=== PATIENT | female | born 1995 | race Caucasian/White ===

== ENCOUNTER 2017-06-22 17:11 | Emergency (ER) | payer SELFPAY ==
[2017-06-22] MEDS ORDERED: Ketorolac INJ* 30 MG/ML 1 ML VIAL IV PUSH ONE (17:52)
[2017-06-22 18:58] LABS: Add Diff/Slide Review? Slide Review Added; Comments Flag Yes; Hematocrit 33 % (35-47); Hemoglobin 10.6 g/dl (12.0-16.0); Mean Corpuscular HGB Conc 33 g/dl (31-36); Mean Corpuscular Hemoglobin 27 pg (27-31); Mean Corpuscular Volume 82 fL (80-97); Mean Platelet Volume 8 um3 (7.4-10.4); Red Cell Distribution Width 14 % (10.5-15)
[2017-06-22 19:05] LABS: Manual Entry Verification ROB0080; Mono Internal Control QC Line Present
[2017-06-22 19:12] LABS: ALT 9 U/L (7-52); AST 16 U/L (13-39); Albumin 4.3 g/dL (3.2-5.2); Alkaline Phosphatase 55 U/L (34-104); Anion Gap 6 mmol/L (2-11); Blood Urea Nitrogen 18 mg/dL (6-24); CO2 Carbon Dioxide 26 mmol/L (22-32); Calcium 9.2 mg/dL (8.6-10.3); Chloride 102 mmol/L (101-111); EGFR African American 165.6 (>60); EGFR Non-African American 128.8 (>60); Globulin 3.2 g/dL (2-4); Glucose 107 mg/dL (70-100); Potassium 3.9 mmol/L (3.5-5.0); Sodium 134 mmol/L (133-145); Total Protein 7.5 g/dL (6.4-8.9)
[2017-06-22] MEDS: NS 0.9% 1000 ML* 2,000 ML IV ONE (19:23)
[2017-06-22] MEDS ORDERED: NS 0.9% 1000 ML* 1,000 ML IV ONE (20:04)
[2017-06-22] MEDS ORDERED: Dexamethasone TAB* 4 MG PO ONE (20:47)
--- NOTE | 2017-06-22 20:49 | ED ---
HPI Febrile Illness - HPI Summary HPI Summary: 21F presents with fever today. She admits to sore throat, headache, dry cough, and generalized body aches. She denies any neck stiffness. She denies any photophobia. She does not have a history of strep or mono. She has not take anything for her fever since this morning. She has normal appetite. no abdominal pain, n/v/d. no tick exposure. rest of school is sick with similar symptoms. - History of Current Complaint Chief Complaint: EDGeneral Time Seen by Provider: 06/22/17 17:51 Pain Intensity: 5 - Allergy/Home Medications Allergies/Adverse Reactions: Allergies Allergy/AdvReac Type Severity Reaction Status Date / Time No Known Allergies Allergy Verified 06/22/17 21:06 PMH/Surg Hx/FS Hx/Imm Hx Endocrine/Hematology History: Denies: Hx Anticoagulant Therapy Cardiovascular History: Denies: Hx Hypertension Infectious Disease History: No Infectious Disease History: Denies: Traveled Outside the [place] in Last 30 Days - Family History Known Family History: Negative: Diabetes - Social History Alcohol Use: None Substance Use Type: Reports: None Smoking Status (MU): Never Smoked Tobacco Review of Systems Positive: Fever Positive: Sore Throat, Nasal Discharge Negative: Chest Pain Positive: Cough. Negative: Shortness Of Breath Negative: Abdominal Pain, Vomiting, Diarrhea, Nausea All Other Systems Reviewed And Are Negative: Yes Physical Exam Triage Information Reviewed: Yes Vital Signs On Initial Exam: Initial Vitals Temp Pulse Resp BP Pulse Ox 101.8 F 92 20 122/63 100 06/22/17 17:14 06/22/17 17:14 06/22/17 17:14 06/22/17 17:14 06/22/17 17:14 Vital Signs Reviewed: Yes Appearance: Positive: Ill-Appearing - nontoxic Skin: Positive: Warm, Dry Head/Face: Positive: Normal Head/Face Inspection Eyes: Positive: Normal, EOMI, FACUNDO, Conjunctiva Clear ENT: Positive: Normal ENT inspection, Pharyngeal erythema, Tonsillar swelling, Other - uvula midline, soft palate symmetric. Negative: Tonsillar exudate, Trismus, Muffled/hoarse voice Neck: Positive: Supple, Nontender, No Lymphadenopathy Respiratory/Lung Sounds: Positive: Clear to Auscultation, Breath Sounds Present Cardiovascular: Positive: Normal, RRR Abdomen Description: Positive: Nontender, Soft Bowel Sounds: Positive: Present Musculoskeletal: Positive: Normal Neurological: Positive: Normal Psychiatric: Positive: Normal - Koffi Coma Scale Coma Scale Total: 15 Diagnostics - Vital Signs Vital Signs Temp Pulse Resp BP Pulse Ox 06/22/17 17:14 101.8 F 92 20 122/63 100 - Laboratory Lab Results: Lab Results 06/22/17 06/22/17 06/22/17 Range/Units 18:30 18:30 19:16 WBC 17.0 H (3.5-10.8) 10^3/ul RBC 4.00 (4.0-5.4) 10^6/ul Hgb 10.6 L (12.0-16.0) g/dl Hct 33 L (35-47) % MCV 82 (80-97) fL MCH 27 (27-31) pg MCHC 33 (31-36) g/dl RDW 14 (10.5-15) % Plt Count 311 (150-450) 10^3/ul MPV 8 (7.4-10.4) um3 Neut % (Auto) 81.9 (38-83) % Lymph % (Auto) 5.9 L (25-47) % [place] % (Auto) 11.9 H (1-9) % Eos % (Auto) 0.2 (0-6) % Baso % (Auto) 0.1 (0-2) % Absolute Neuts (auto) 13.9 H (1.5-7.7) 10^3/ul Absolute Lymphs (auto) 1.0 (1.0-4.8) 10^3/ul Absolute Monos (auto) 2.0 H (0-0.8) 10^3/ul Absolute Eos (auto) 0 (0-0.6) 10^3/ul Absolute Basos (auto) 0 (0-0.2) 10^3/ul Absolute Nucleated RBC 0 10^3/ul Nucleated RBC % 0 Sodium 134 (133-145) mmol/L Potassium 3.9 (3.5-5.0) mmol/L Chloride 102 (101-111) mmol/L Carbon Dioxide 26 (22-32) mmol/L Anion Gap 6 (2-11) mmol/L BUN 18 (6-24) mg/dL Creatinine 0.60 (0.51-0.95) mg/dL Est GFR ( Amer) 165.6 (>60) Est GFR (Non-Af Amer) 128.8 (>60) BUN/Creatinine Ratio 30.0 H (8-20) Glucose 107 H (70-100) mg/dL Calcium 9.2 (8.6-10.3) mg/dL Total Bilirubin 0.30 (0.2-1.0) mg/dL AST 16 (13-39) U/L ALT 9 (7-52) U/L Alkaline Phosphatase 55 (34-104) U/L Total Protein 7.5 (6.4-8.9) g/dL Albumin 4.3 (3.2-5.2) g/dL Globulin 3.2 (2-4) g/dL Albumin/Globulin Ratio 1.3 (1-3) Beta HCG, Quant < 0.60 mIU/mL Monoscreen Negative (Negative) Group A Strep Rapid Negative (Negative) Result Diagrams: 06/22/17 18:30 06/22/17 18:30 Lab Statement: Any lab studies that have been ordered have been reviewed, and results considered in the medical decision making process. Course/Dx - Course Course Of Treatment: 21F presents with fever today. She admits to sore throat, headache, dry cough, and generalized body aches. She denies any neck stiffness. She denies any photophobia. She does not have a history of strep or mono. She has not take anything for her fever since this morning. She has normal appetite. no abdominal pain, n/v/d. no tick exposure. rest of school is sick with similar symptoms. pharyanx erythema, uvula midline, soft palate symmetric, lungs CTA. abdomen soft nontender. labs wbc 17 but no left shift. mono neg. strept neg. patient symptoms most likely viral syndrome. gave fluids and toradol and feeling better. patient understands and agrees with plan. - Febrile Illness Differential Diagnoses: Pneumonia, Other: - strept, pharyngitis - Diagnoses Provider Diagnoses: Fever, Acute pharyngitis Discharge - Discharge Plan Condition: Good Disposition: HOME Prescriptions: Dexamethasone TAB* [Decadron TAB*] 4 mg PO DAILY #4 tab Magic Mouth Was-KRISTA/MAAL/LIDO* 5 ml SWISH SPIT QID #100 ml Patient Education Materials: Fever in Adults (ED) Referrals: [facility] [Primary Care Provider] - Additional Instructions: Magic mouthwash 5ml swish and spit can use 4x a day Take steroid once a day for 5 days, starting tomorrow Take Tylenol or ibuprofen for fever every 6 hours Use saline spray in nose as much as needed Use humidifier in room or can use warm water in bowls Can gargle salt water Can use cough drops or products such as cloraseptic spray Follow up with [facility] within 5 days Return to ED if develop any new or worsening symptoms
[2017-06-22 21:40] VITALS: BP 116/64
== END 2017-06-22 21:39 | disposition home or self-care (01) ==
LOC: ED 17:11
DX: R50.9 Fever, unspecified (principal); J02.9 Acute pharyngitis, unspecified
CPT/HCPCS: 36415; 80053; 84702; 85025; 86308; 87040; 87651; 96360; 96374; 99283; J1885; J8540

== ENCOUNTER 2017-08-08 17:23 | Emergency (ER) | payer BC ==
--- NOTE | 2017-08-08 18:01 | ED ---
Psychiatric Complaint - HPI Summary HPI Summary: Ben presents with suicidal ideation for past couple days. She denies any plan. She states she does not feel safe at school. She states she has been going to counseling occasionally. she denies any history of cutting herself. She has been using ETOH and smoking weed. She has history of depression. - History Of Current Complaint Chief Complaint: EDMentalHealth Time Seen by Provider: 08/08/17 17:45 - Allergies/Home Medications Allergies/Adverse Reactions: Allergies Allergy/AdvReac Type Severity Reaction Status Date / Time No Known Allergies Allergy Verified 06/22/17 21:06 PMH/Surg Hx/FS Hx/Imm Hx Endocrine/Hematology History: Denies: Hx Anticoagulant Therapy Cardiovascular History: Denies: Hx Hypertension Infectious Disease History: No Infectious Disease History: Denies: Traveled Outside the [place] in Last 30 Days - Family History Known Family History: Negative: Diabetes - Social History Alcohol Use: None Substance Use Type: Reports: None Smoking Status (MU): Never Smoked Tobacco Review of Systems Negative: Fever Negative: Chest Pain Negative: Shortness Of Breath Positive: Depressed All Other Systems Reviewed And Are Negative: Yes Physical Exam Triage Information Reviewed: Yes Vital Signs On Initial Exam: Initial Vitals Temp Pulse Resp BP Pulse Ox 97.6 F 66 18 135/117 98 08/08/17 17:25 08/08/17 17:25 08/08/17 17:25 08/08/17 17:25 08/08/17 17:25 Vital Signs Reviewed: Yes Appearance: Positive: Well-Appearing Skin: Positive: Warm, Dry Head/Face: Positive: Normal Head/Face Inspection Eyes: Positive: Normal, Conjunctiva Clear Respiratory/Lung Sounds: Positive: Clear to Auscultation, Breath Sounds Present Cardiovascular: Positive: Normal, RRR Abdomen Description: Positive: Nontender, Soft Bowel Sounds: Positive: Present Musculoskeletal: Positive: Normal Neurological: Positive: Normal Psychiatric: Positive: Depressed Diagnostics - Vital Signs Vital Signs Temp Pulse Resp BP Pulse Ox 08/08/17 17:25 97.6 F 66 18 135/117 98 - Laboratory Result Diagrams: 08/08/17 18:30 08/08/17 18:30 Lab Statement: Any lab studies that have been ordered have been reviewed, and results considered in the medical decision making process. Course/Dx - Course Course Of Treatment: Ben presents with suicidal ideation for past couple days. She denies any plan. She states she does not feel safe at school. She states she has been going to counseling occasionally. she denies any history of cutting herself. She has been using ETOH and smoking weed. She has history of depression. medically clear for [facility]. patient labs came back that has mono. patient states has been feeling fatigued and had fever a couple days ago. no sore throat. patient was evuluated by mental health and dr peña felt safe to discharge into [facility] care. - Differential Dx/Clinical Impression Differential Diagnosis/HQI/PQRI: Positive: Anxiety, Depression, Suicidal Ideation Provider Diagnosis: Depression Discharge - Discharge Plan Condition: Stable Disposition: HOME Referrals: [facility] [Primary Care Provider] -
[2017-08-08 18:43] LABS: Hematocrit 30 % (35-47); Hemoglobin 10.1 g/dl (12.0-16.0); Mean Corpuscular HGB Conc 33 g/dl (31-36); Mean Corpuscular Hemoglobin 27 pg (27-31); Mean Corpuscular Volume 81 fL (80-97); Mean Platelet Volume 8 um3 (7.4-10.4); Red Blood Count 3.78 10^6/ul (4.0-5.4); Red Cell Distribution Width 15 % (10.5-15); White Blood Count 6.5 10^3/ul (3.5-10.8)
[2017-08-08 18:46] LABS: Add Diff/Slide Review? Manual Diff Added; Comments Flag Yes
[2017-08-08 18:55] LABS: Urine Bilirubin Negative (Negative); Urine Glucose Negative (Negative); Urine Nitrite Negative (Negative)
[2017-08-08 18:58] LABS: ALT 61 U/L (7-52); AST 51 U/L (13-39); Albumin 3.8 g/dL (3.2-5.2); Alkaline Phosphatase 86 U/L (34-104); Anion Gap 5 mmol/L (2-11); BUN/Creatinine Ratio 17.5 (8-20); Blood Urea Nitrogen 11 mg/dL (6-24); CO2 Carbon Dioxide 28 mmol/L (22-32); Calcium 8.7 mg/dL (8.6-10.3); Chloride 103 mmol/L (101-111); EGFR African American 156.6 (>60); EGFR Non-African American 121.7 (>60); Globulin 3.2 g/dL (2-4); Glucose 112 mg/dL (70-100); Potassium 3.4 mmol/L (3.5-5.0); Sodium 136 mmol/L (133-145)
[2017-08-08 19:04] LABS: Benzodiazepine Urine Screen None Detected (None Detect)
[2017-08-08 19:18] LABS: Acetaminophen < 15 mcg/mL; Alcohol < 10 mg/dL (<10); Salicylate < 2.50 mg/dL (<30)
[2017-08-08 19:19] VITALS: BP 119/71
[2017-08-08 19:24] LABS: Eosinophils % 4 % (0-6); Immature Granulocytes 2 % (0-9); Neutrophil % 24 % (38-83); RBC Morphology Normal (Normal); Reactive Lymph % 31 % (0-6)
[2017-08-08 19:27] LABS: Add Path Review? YES
[2017-08-08 19:32] LABS: TSH (Thyroid Stimulating Horm) 1.67 mcIU/mL (0.34-5.60)
[2017-08-08 19:47] LABS: Mono Internal Control QC Line Present
== END 2017-08-09 01:58 | disposition home or self-care (01) ==
LOC: ED 17:23
DX: F32.9 Major depressive disorder, single episode, unspecified (principal); R45.851 Suicidal ideations
CPT/HCPCS: 36415; 80053; 80307; 80320; 80329; 81003; 84443; 85025; 85060; 86308; 99284; G0480